=== PATIENT | female | born 1940 | race American Indian/Alaskan Native ===

== ENCOUNTER 2021-02-02 15:06 | Outpatient (CLI) | payer MEDICARE ==
--- NOTE | 2021-02-02 16:40 | XRay Report ---
XR hip 2-3V LT INDICATION / CLINICAL INFORMATION: LEFT HIP AND LEG PAIN M79.605. COMPARISON: None available. FINDINGS: BONES/JOINT(S): No acute fracture or subluxation. No significant degenerative changes. SOFT TISSUES: No significant abnormality. ADDITIONAL FINDINGS: None. Signer Name: Saul Gama MD Signed: 02/02/2021 4:36 PM Workstation Name: [id number]
--- NOTE | 2021-02-02 16:49 | XRay Report ---
LUMBAR SPINE 3 VIEWS INDICATION: Lower back pain. COMPARISON: No relevant prior imaging study available. FINDINGS: VERTEBRAE: No acute fracture. Normal alignment. The bones are demineralized. DISC SPACES: Severe discogenic degenerative changes are noted at L4-L5 with mild to moderate discogen ic degenerative changes elsewhere. FACET JOINTS: There is facet hypertrophy at L4-L5 and L5-S1. SOFT TISSUES: There is moderate aortic atherosclerosis with postoperative changes seen along the righ t lower quadrant. A PEG tube is noted. ADDITIONAL FINDINGS: No additional significant findings. IMPRESSION: Severe lumbar spondylosis. Signer Name: Keyshawn Carrillo MD Signed: 02/02/2021 4:43 PM Workstation Name: [email or web address]
== END 2021-02-02 15:07 | disposition home or self-care (01) ==
LOC: SPVIMAG 15:06
PROVIDERS: ATTEND Internal Medicine Rheumatology
DX: M47.816 Spondylosis without myelopathy or radiculopathy, lumbar region (principal); M25.552 Pain in left hip
CPT/HCPCS: 72100